=== PATIENT | female | born 1985 | race Caucasian/White ===

== ENCOUNTER 2017-05-24 15:24 | Emergency (ER) | payer OTHER ==
[~2017-05-24] VITALS: Ht 175.3 cm; Wt 96.3 kg
[2017-05-24] MEDS ORDERED: NAPROSYN500 MG PO (17:30)
[2017-05-24] MEDS ORDERED: NORCO 5/3251 TABLET PO (17:30)
[2017-05-24 18:12] VITALS: BP 137/98
== END 2017-05-24 18:15 | disposition home or self-care (01) ==
LOC: EME 15:24
DX: M25.462 Effusion, left knee (principal)
CPT/HCPCS: 73564; 99281; 99284